=== PATIENT | male | born 1990 | race Caucasian/White ===

== ENCOUNTER 2020-02-10 19:45 | Emergency (ER) | payer OTHER ==
[~2020-02-10] VITALS: Ht 172.7 cm; Wt 79.4 kg
[2020-02-10 19:59] VITALS: Ht 172.7 cm; Wt 79.4 kg
[2020-02-10 20:57] VITALS: BP 139/80
== END 2020-02-11 02:45 | disposition other institution (70) ==
LOC: ED 19:45
DX: Z02.89 Encounter for other administrative examinations (principal)